=== PATIENT | male | born 1950 | race Caucasian/White ===

== ENCOUNTER 2018-07-23 12:15 | Day surgery (SDC) | payer MEDICARE, OTHER ==
[~2018-07-23] VITALS: Ht 188 cm; Wt 100.3 kg
[2018-07-23] MEDS ORDERED: Lisinopril2.5 MG (12:47)
[2018-07-23] MEDS ORDERED: Azor 10-20 MG1 EACH (12:47)
[2018-07-23] MEDS ORDERED: HYDCHL12.5 (12:48)
[2018-07-23] MEDS ORDERED: ATOR40TA (12:48)
[2018-07-23] MEDS ORDERED: NITR.6SL (12:48)
[2018-07-23] MEDS ORDERED: LEVSOD125 (12:49)
[2018-07-23] MEDS ORDERED: Aspir-Trin325 MG (12:50)
[2018-07-23] MEDS ORDERED: HYDR-86 (12:51)
[2018-07-23] MEDS ORDERED: VENL150ER (12:51)
[2018-07-23] MEDS ORDERED: TAMS.4ER (12:52)
== END 2018-07-23 14:27 | disposition home or self-care (01) ==
LOC: ORSCSDS 12:15
PROVIDERS: Student in an Organized Health Care Education/Training Program
PROC: 0DJD8ZZ Inspection of Lower Intestinal Tract, Via Natural or Artificial Opening Endoscopic (ICD-10-PCS; principal; 2018-07-23 13:30)
DX: Z12.11 Encounter for screening for malignant neoplasm of colon (principal); K64.8 Other hemorrhoids; I10 Essential (primary) hypertension; I25.10 Atherosclerotic heart disease of native coronary artery without angina pectoris; G47.33 Obstructive sleep apnea (adult) (pediatric); Z79.899 Other long term (current) drug therapy; Z79.82 Long term (current) use of aspirin
CPT/HCPCS: J7120

== ENCOUNTER 2018-11-24 09:03 | Inpatient (IN) | payer MEDICARE, OTHER ==
[~2018-11-24] VITALS: Ht 188 cm; Wt 101.7 kg
[~2018-11-24 09:03] MED LIST: ATOR40TA PO; Aspir-Trin325 MG PO; Azor 10-20 MG1 EACH; HYDCHL12.5; HYDR-86; LEVSOD125 PO; Lisinopril2.5 MG; NITR.6SL; TAMS.4ER PO; VENL75ER PO
[2018-11-24 09:35] LABS: BASOPHILS ABSOLUTE AUTO 0.02 K/mm3 (0.00-0.23); BASOPHILS PERCENT AUTO 0 % (0-2); EOSINOPHILS ABSOLUTE AUTO 0.02 K/mm3 (0.00-0.68); EOSINOPHILS PERCENT AUTO 0 % (0-6); Hematocrit 45.5 % (37.0-53.0); Hemoglobin 14.8 g/dL (13.5-17.5); IMMATURE GRAN ABSOLUTE AUTO 0.06 K/mm3 (0.00-0.10); IMMATURE GRAN PERCENT AUTO 1 % (0-1); LYMPHOCYTES ABSOLUTE AUTO 0.56 K/mm3 (0.84-5.20); LYMPHOCYTES PERCENT AUTO 5 % (21-46); MONOCYTES PERCENT AUTO 46 % (4-13); Mean Corpuscular HGB Conc 32.5 g/dL (31.5-36.5); Mean Corpuscular Volume 92 fL (80-100); Mean Platelet Volume 10.7 fL (9.1-12.4); NEUTROPHILS ABSOLUTE AUTO 5.53 K/mm3 (1.96-9.15); NEUTROPHILS PERCENT AUTO 48 % (41-73); Platelet Count 104 K/mm3 (150-400); RDW Coefficient Variation 12.8 % (11.7-14.2); RDW Standard Deviation 43.3 fL (35.1-46.3); Red Blood Cell Count 4.94 M/mm3 (4.30-5.90); White Blood Cell Count 11.49 K/mm3 (4.00-11.30)
[2018-11-24 10:05] LABS: Alanine Aminotransfer (ALT/SGP 46 U/L (12-78); Albumin, Blood 3.9 g/dL (3.4-5.0); Albumin/Globulin Ratio 1.1 (0.8-1.8); Alk Phos 87 U/L (50-136); Anion Gap 7 mmol/L (6-16); Aspartate Aminotrans (AST/SGOT 70 U/L (12-37); Bilirubin, Total 0.6 mg/dL (0.1-1.0); Blood Urea Nitrogen 15 mg/dL (8-24); Bun/Creatinine Ratio 13.4 (12.0-20.0); CO2, Blood 26 mmol/L (21-32); Calcium, Blood 9.1 mg/dL (8.5-10.1); Chloride, Blood 107 mmol/L (98-108); Creatinine, Blood 1.12 mg/dL (0.60-1.20); Globulin, Blood 3.5 g/dL (2.2-4.0); Glomerular Filtration Rate >60 (60-); Glucose, Blood 173 mg/dL (70-99); Potassium, Blood 3.9 mmol/L (3.5-5.5); Sodium, Blood 140 mmol/L (136-145); Total Protein, Blood 7.4 g/dL (6.4-8.2)
[2018-11-24] MEDS ORDERED: AMLO5 PO (10:53)
[2018-11-24] MEDS ORDERED: LISI20 PO (10:53)
[2018-11-24] MEDS ORDERED: Hydrochloroth12.5 MG PO (10:53)
--- NOTE | 2018-11-24 15:00 | NUR ---
ADMISSION NOTE: ASSUMED CARE OF PT AT 1352, RECEIVED REPORT FROM SRINIVAS COOPER RN. PT ARRIVED TO UNIT VIA STRETCHER AND WAS ABLE TO AMBULATE IND TO BED. PT DENIED ANY CP ON ARRIVAL OR DISCOMFORT. PT ALSO DENIES ANY SOB OR DIZZINESS. HOWEVER, PT IS COMPLAINING OF A HEADACHE. PT HAS A 0.4 MG NITRO PATCH ON LEFT SIDE OF THE CHEST. PT IS A/O X4. PT IS ON TELE WHICH INDICATES NSR WITH A HR IN THE 60'S PER HEAVY DUTY TRUCK MECHANIC. PT WAS INSTRUCTED TO USE URINAL IN RESTROOM AND TO CALL FOR HELP IF HE BEGINS TO DEVELOP CHEST PAIN. PT WAS RECENTLY SEEN BY CADIOLOGIST AND THE PLAN IS FOR THE PT TO RECEIVE AN ANGIOGRAM. PT WAS ORIENTED TO ROOM, BED AT LOWEST LEVEL AND CALL LIGHT WITHIN REACH. WILL CONTINUE TO MONITOR UNTIL REPORT IS GIVEN TO ONCOMING SHIFT
--- NOTE | 2018-11-24 17:41 | NUR ---
SHIFT SUMMARY: PT HAS NOT DECIDED IF HE WANTS TO HAVE THE ANGIOGRAM HERE AT [facility] OR IF HE CAN BE TRANSFERED TO [place]. PT SPOKE TO REGARDING HIS WISHES, IS TRYING TO FIND A DELIVERER PHARMACY THAT WILL ACCEPT THE PT. HOWEVER, PT IS ON THE SCHEDULE FOR AN ANIGOGRAM HERE AT [facility] TOMORROW 11/25/18 IF TRANSFER DOES NOT OCCUR. PT HAS A HX OF SLEEP APNEA AND A FRIEND WILL BE BRINGING THE PT'S CPAP TONIGHT. WHEN DELIVERER PHARMACY CAME TO ASSESS PT HE STATED THAT HE WAS EXPERINCING CHEST DISCOMFORT. HOWEVER, WHEN REASSESSING CHEST PAIN PT STATED " I DO NOT HAVE ANY DISCOMFORT OR PAIN, I HAVE A HEADACHE". PT DENIES ANY SHORTNESS OF BREATH. PT BP IS STABLE AND IS STILL IN NSR WITH HR IN THE 70'S PER MATTRESS MAKER. BED AT LOWEST LEVEL, CALL LIGHT WITHIN REACH. WILL CONTINUE TO MONITOR PT UNTIL REPORT IS GIVEN TO ONCOMING SHIFT.
--- NOTE | 2018-11-24 18:38 | NUR ---
ANGIOGRAM This RN placed call to Dr Sandoval to cancel pt's angiogram per orders from Dr Person.
--- NOTE | 2018-11-25 05:37 | NUR ---
SHIFT SUMMARY PATIENT ALERT AND ORIENTED, REMAINED STABLE THROUGHOUT SHIFT, CANCELLED SCHEDULED ANGIOGRAM, HEART RHYTHM SINUS RIGHT BUNDLE BRANCH BLOCK HEART RATE AT 64 PER GAS LEAK INSPECTOR HELPER. PATIENT C/O HEADACHE BUT DENIES CHEST PAIN. HEPARIN WAS INCREASED TO 16U/KG/HR. BED LOCKED, LOW IN POSITION AND CALL LIGHT WITHIN REACH.
--- NOTE | 2018-11-25 07:41 | NUR ---
NURSING PCU DAYSHIFT: Assumed care of pt at approx 0700. A/O, pleasant, cooperative w/care. Mildly diaphoretic, skin intact w/no breakdown noted. Denies any current pain/discomfort though did have c/o VENTURA r/t nitro. Ambulates independently and w/o difficulty. Tele in place, NSR w/BBB, no c/o CP/pressure, SBP 130's prior to a.m. meds, no noted edema. L/S cta t/o, O2 sat mid 90's on RA, denies dyspnea, continuous bedside O2 monitoring, uses home CPAP during periods of rest. Abd SNT, voiding w/o difficulty. PIV x1, hep gtt infusing at 36.6 mls/hr (16u/kg/hr). No s/s of acute distress at this time. Seen by PMD, new d/o received. Plan for xfer to [place] once bed assignment received. Pt denies any current needs or questions regarding plan of care. Call light in reach, cont to monitor for any changes.
--- NOTE | 2018-11-25 17:05 | NUR ---
NURSING PCU TRANSFER SUMMARY: No acute changes noted t/o the shift. [place] bed assignment received, transport scheduled for 1730 via EMS. Telephone report to be provided to accepting RN. Pt denies any questions/needs at this time, call light in reach, cont to monitor until transfer is completed.
== END 2018-11-25 17:36 | disposition short-term general hospital (02) | DRG 282 ==
LOC: ER 09:03 → PCU 09:04 → ER 11:35 → PCU 11:35
PROVIDERS: Emergency Medicine; ADMIT Internal Medicine
DX: I21.19 ST elevation (STEMI) myocardial infarction involving other coronary artery of inferior wall (principal); Z79.82 Long term (current) use of aspirin; I25.119 Atherosclerotic heart disease of native coronary artery with unspecified angina pectoris; E78.00 Pure hypercholesterolemia, unspecified; F43.21 Adjustment disorder with depressed mood; E78.5 Hyperlipidemia, unspecified; Z98.61 Coronary angioplasty status; G47.30 Sleep apnea, unspecified; N40.1 Benign prostatic hyperplasia with lower urinary tract symptoms; N13.9 Obstructive and reflux uropathy, unspecified; Z96.653 Presence of artificial knee joint, bilateral; E11.9 Type 2 diabetes mellitus without complications; I25.9 Chronic ischemic heart disease, unspecified; E03.9 Hypothyroidism, unspecified; Z79.02 Long term (current) use of antithrombotics/antiplatelets
CPT/HCPCS: 36415; 71046; 80053; 83690; 84484; 85025; 85730; 93005; 93010; 94762; 96365; 96366; 99285-25; J1644; J7030